=== PATIENT | female | born 1985 | race Caucasian/White ===

== ENCOUNTER 2019-01-25 08:55 | Outpatient (CLI) | payer BC ==
--- NOTE | 2019-01-29 08:36 | EEG ---
Referring Physician: JAI WADE EEG # [id number] TEST TYPE: ROUTINE OUTPATIENT REPORT: AN EEG USING THE [employer] TEN-TWENTY SYSTEM OF ELECTRODE PLACEMENT WAS PERFORMED. The waking background is an 8-9 hertz occipitally dominant alpha frequency. The patient remained awake throughout the study. Hyperventilation and photic stimulation were unremarkable. There were several bursts of sharp and slow wave discharges that appeared in a generalized fashion. These, at times, appeared more occipitally dominant. No sustained epileptiform activity occurred. IMPRESSION: THIS IS AN ABNORMAL EEG FOR THE FINDINGS OF GENERALIZED EPILEPTIFORM DISCHARGES SUGGESTING UNDERLYING PRIMARY EPILEPSY. CLINICAL CORRELATION IS INDICATED. [employer] Teacher: MICAH Rn Clinical Documentation: EEG.[facility] MTDBartolo
== END 2019-01-25 08:56 | disposition home or self-care (01) ==
LOC: EEG 08:55
PROVIDERS: ATTEND Psychiatry & Neurology Neurology
DX: R56.9 Unspecified convulsions (principal)
CPT/HCPCS: 95816